=== PATIENT | male | born 1995 | race Caucasian/White ===

== ENCOUNTER 2020-04-25 21:27 | Emergency (ER) | payer OTHER ==
[~2020-04-25] VITALS: Ht 170.2 cm; Wt 63.6 kg
[2020-04-25 21:30] VITALS: BP 139/84
--- NOTE | 2020-04-25 21:30 | PHYS DOC ---
General Adult HPI: HPI: ".. I tripped on power cord.. and meshed up both my feet and ankle.. 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 Patient states right ankle and foot hurts worse than left. Distal capillary refill is equal to hands. Distal sensation equal to hands. Patient has some swelling in right ankle and foot. Dorsal pedis and posterior pedis pulses are equal. Positive foot squeeze. Positive pain on inversion of ankles. No upper leg tenderness. Does have chronic knee pain. 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 Patient no recent overseas assignments or exposures. Patient up-to-date with vaccinations. Review of Systems: Review of Systems: Constitutional: Denies fever or chills Eyes: Denies change in visual acuity HENT: Denies nasal congestion or sore throat Respiratory: Denies cough or shortness of breath Cardiovascular: Denies chest pain or edema GI: Denies abdominal pain, nausea, vomiting, bloody stools or diarrhea : Denies dysuria Musculoskeletal: Complains of bilateral foot and ankle pain after inversion type injuries Integument: Denies rash Neurologic: Denies headache, focal weakness or sensory changes Endocrine: Denies polyuria or polydipsia Lymphatic: Denies swollen glands Psychiatric: Denies depression or anxiety Family History: Family History: Noncontributory Current Medications: Current Meds: See nursing for home meds Allergies: Allergies: No known drug allergies Physical Exam: PE: Constitutional: Well developed, well nourished, no acute distress, non-toxic appearance. [] HENT: Normocephalic, atraumatic, bilateral external ears normal, oropharynx moist, no oral exudates, nose normal. [] Eyes: PERRLA, EOMI, conjunctiva normal, no discharge. [] Neck: Normal range of motion, no tenderness, supple, no stridor. [] Cardiovascular:Heart rate regular rhythm, no murmur [] Lungs & Thorax: Bilateral breath sounds clear to auscultation [] Abdomen: Bowel sounds normal, soft, no tenderness, no masses, no pulsatile masses. [] Skin: Warm, dry, no erythema, no rash. [] Back: No tenderness, no CVA tenderness. [] Extremities: Bilateral foot and ankle tenderness, no cyanosis, no clubbing, ROM intact but limited and ankles and feet due to pain, right ankle and foot edema. [] Neurologic: Alert and oriented X 3, normal motor function, normal sensory function, no focal deficits noted. [] Psychologic: Affect anxious, judgement normal, mood normal. [] EKG: EKG: [] Radiology/Procedures: Radiology/Procedures: [] Heart Score: C/O Chest Pain: N/A Risk Factors: Risk Factors: DM, Current or recent (<one month) smoker, HTN, HLP, family history of CAD, obesity. Risk Scores: Score 0 - 3: 2.5% MACE over next 6 weeks - Discharge Home Score 4 - 6: 20.3% MACE over next 6 weeks - Admit for Clinical Observation Score 7 - 10: 72.7% MACE over next 6 weeks - Early Invasive Strategies Course & Med Decision Making: Course & Med Decision Making Pertinent Labs and Imaging studies reviewed. (See chart for details) Ice, elevation, rest, wear Matias wrap, and follow-up Cuca. Take Tylenol and ibuprofen for pain for marked pain may take Vicoprofen. Impression: 1. Bilateral foot and ankle sprains [] Dragon Disclaimer: Dragon Disclaimer: This electronic medical record was generated, in whole or in part, using a voice recognition dictation system. Departure Departure: Impression: Primary Impression: Ankle sprain Disposition: 01 DC HOME SELF CARE/HOMELESS Condition: GUARDED Referrals: HARSHAD MUSE DO, [facility] (PCP) Scripts Hydrocodone/Ibuprofen (HYDROCODONE-IBUPROFEN 7.5-200 ) 1 Each Tablet 1 TAB PO PRN Q6HRS PRN for PAIN, #30 TAB 0 Refills Prov: RAMANA PADILLA MD 04/25/20 Dragkeys[place] Disclaimer This chart was dictated in whole or in part using Voice Recognition software in a busy, high-work load, and often noisy Emergency Department environment. It may contain unintended and wholly unrecognized errors or omissions. RAMANA PADILLA MD Apr 25, 2020 21:30
[2020-04-25] MEDS ORDERED: HYDROcodon/IBUPROFEN 7.5/200MG 1 TAB TABLET PO ONE (21:45)
[2020-04-25] MEDS ORDERED: HYDR-1179 PO (21:53)
--- NOTE | 2020-04-25 23:26 | RAD ---
EXAM: AP, oblique and lateral views of the bilateral ankles AP, oblique and lateral views of the bilateral feet DATE: 04/25/2020 9:56 PM INDICATION: Reason: TRIP AND FALL / Spl. Instructions: / History: COMPARISON: No Prior FINDINGS: Right ankle and foot: Small osseous immanuel is seen at the lateral aspect of the calcaneus at the calcaneocuboid joint. Altho ugh this may represent prominent os peroneus, avulsion fracture is also a consideration and can be co rrelated with patient's symptoms. Ankle mortise is congruent. Talar dome is intact. Joint spaces are preserved without significant degenerative/proliferative change. No significant soft tissue swelling. Left ankle and foot: No acute fracture or dislocation. Ankle mortise is congruent. Talar dome is intact. Joint spaces are preserved without significant degenerative/proliferative change. No significant soft tissue swelling. IMPRESSION: Small osseous immanuel is seen at the lateral aspect of the calcaneus centered at the calcaneocuboid adan nt. Although this may represent prominent/mildly retracted os peroneus, avulsion fracture is also a c onsideration and can be correlated with patient's symptoms. Electronically signed by: Akin Mcbride MD (04/25/2020 11:23 PM) ALEXEI
== END 2020-04-25 23:10 | disposition home or self-care (01) ==
LOC: ER 21:27
DX: S93.402A Sprain of unspecified ligament of left ankle, initial encounter (principal); S93.401A Sprain of unspecified ligament of right ankle, initial encounter; X50.9XXA Other and unspecified overexertion or strenuous movements or postures, initial encounter; Y93.89 Activity, other specified; Y92.89 Other specified places as the place of occurrence of the external cause; Y99.8 Other external cause status
CPT/HCPCS: 73610; 73630; 99284